=== PATIENT | male | born 1955 | race Caucasian/White ===

== ENCOUNTER 2019-02-19 12:56 | Outpatient (CLI) | payer OTHER ==
[2019-02-19 13:19] LABS: BASOPHILS % 0.7 % (0.0-1.5); EOSINOPHILS % 2.6 % (0.0-6.8); MEAN CORPUSCULAR HEMOGLOBIN 32.6 pg (28.0-34.0); MONOCYTES % 8.1 % (0.0-11.0); NEUTROPHILS # 6.8 # k/uL (1.4-7.7)
--- NOTE | 2019-02-19 13:43 | Diagnostic Imaging Report ---
ANGEL LUIS MARINELLI [facility] [id number] [facility] [address] [place], [place]. [address] Report Submission Date: February 19, 2019 1:41:56 PM CDT Patient Study Name: PERNELL ARAUJO Date: February 19, 2019 1:07:29 PM CDT Modality Type: DX Gender: M Description: CHEST 2VIEW : 53 Institution: [facility] Physician: ANGEL LUIS MARINELLI Examination: PA and lateral chest. History: Evaluate lung flores. Comparison exam: None provided. Findings: PA and lateral views of the chest demonstrates a normal cardiac and mediastinal silhouette. No focal infiltrate. No blunting of the costophrenic margins. Osseous structures are appropriate for age. Impression: No acute pulmonary process. Electronically signed on February 19, 2019 1:41:56 PM CDT by: Ankit VILLANUEVA
== END 2019-02-19 12:58 ==
LOC: LAB 12:56
PROVIDERS: ATTEND Nurse Practitioner Family
DX: A69.20 Lyme disease, unspecified (principal)
CPT/HCPCS: 36415; 71046; 80053; 82553; 85025; 85651; 86038; 86431; 86618